=== PATIENT | male | born 1980 | race Two or more races ===

== ENCOUNTER 2024-11-24 22:39 | Inpatient (IN) | payer MEDICAID, OTHER ==
[~2024-11-24] VITALS: Ht 167.6 cm; Wt 71.2 kg
[2024-11-24] MEDS: MAGNESIUM SULFATE 1GM/100ML 100 ML IV SCH
--- NOTE | 2024-11-24 22:47 | ED.PDOC ---
SOB-HPI HPI Comments 44-year-old male with PMHx COPD, Asthma, Sickle Cell Disease brought in by EMS presents with a chief complaint of SOB s/p taking a walk. Patient reported to EMS that he went for a walk and started to become SOB. Per EMS, they were unable to get an initial saturation for patient and noticed he was having an increased work of breathing. EMS placed patient on CPAP. Patient is sating at 100% on CPAP, but is anxious and flailing around. Patient has been intubated before for SOB. No other symptoms or modifying factors present at this time. Chief Complaint: Shortness of Breath Time Seen by MD: 22:40 Reviewed notes: Medications, Allergies Information Source: Emergency Med Personnel Mode of Arrival: EMS Severity: Moderate Timing: Minutes Duration: Since onset Context: With Light Exertion PE Risk Factors: None History of: Asthma, COPD Prehospital treatment: C-Pap Modifying Factors: Exertion Past Medical History PAST MEDICAL HISTORY: Asthma, COPD Past Medical History (Other): SICKLE CELL DISEASE Surgical History: Denies all surgeries Family History Family History: Reviewed,noncontributory to illness Social History Smoker: Non-Smoker Alcohol: Denies ETOH Use Drugs: Denies Drug Use Lives In: Home Constitutional: denies: chills, diaphoresis, fatigue, fever, malaise, sweats, weakness, others EENTM: denies: blurred vision, double vision, ear bleeding, ear discharge, ear drainage, ear pain, ear ringing, eye pain, eye redness, hearing loss, mouth pain, mouth swelling, nasal discharge, nose bleeding, nose congestion, nose pain, photophobia, tearing, throat pain, throat swelling, voice changes, others Respiratory: reports: shortness of breath; denies: cough, hemoptysis, orthopnea, SOB at rest, SOB with excertion, stridor, wheezing, others Cardiovascular: denies: chest pain, dizzy spells, diaphoresis, Dyspnea on exertion, edema, irregular heart beat, left arm pain, lightheadedness, p alpitations, PND, syncope, others Gastrointestinal: denies: abdomen distended, abdominal pain, blood streaked bowels, constipated, diarrhea, dysphagia, difficulty swallowing, hematemesis, melena, nausea, poor appetite, poor fluid intake, rectal bleeding, rectal pain, vomiting, others Genitourinary: denies: burning, dysuria, flank pain, frequency, hematuria, incontinence, penile discharge, penile sore, pain, testicle pain, testicle swelling, urgency, others Neurological: denies: dizziness, fainting, headache, left sided numbness, left sided weakness, numbness, paresthesia, pre-existing deficit, right sided numbness, right sided weakness, seizure, speech problems, tingling, tremors, weakness, others Musculoskeletal: denies: back pain, gout, joint pain, joint swelling, muscle pain, muscle stiffness, neck pain, others Integumetry: denies: bruises, change in color, change in hair/nails, dryness, laceration, lesions, lumps, rash, wounds, others Allergic/Immunocompromised: denies: Difficulty Healing, Frequent Infections, Hives, Itching, others Hematologic/Lymphatic: denies: anemia, blood clots, easy bleeding, easy b ruising, swollen glands, others Endocrine: denies: excessive hunger, excessive sweating, excessive thirst, excessive urination, flushing, intolerance to cold, intolerance to heat, unexplained weight gain, unexplained weight loss, others Psychiatric: denies: anxiety, bipolar disorder, depression, hopeless, panic disorder, schizophrenia, sleepless, suicidal, others All Other Systems: Reviewed and Negative Physical Exam General Appearance: No Apparent Distress, Normal HEENT: Normal ENT Inspection, Pharynx Normal, TMs Normal Neck: Full Range of Motion, Non-Tender, Normal, Normal Inspection Respiratory: Chest Non-Tender, Lungs Clear, No Accessory Muscle Use, No Respiratory Distress, Normal Breath Sounds Cardiovascular: No Edema, No JVD, No Murmur, No Gallop, Normal Peripheral Pulses, Regular Rate/Rhythm Breast Exam: Deferred Gastrointestinal: No Organomegaly, Non Tender, No Pulsatile Mass, Normal Bowel Sounds, Soft Genitalia: Deferred Pelvic: Deferred Rectal: Deferred Extremities: No calf tenderness, Normal capillary refill, Normal inspection, Normal range of motion, Non-tender, No pedal edema Musculoskeletal : Apperance: Normal Neurologic: Alert, sports media II-XII nml as Tested, No Motor Deficits, Normal Affect, Normal Mood, No Sensory Deficits Cerebellar Function: Normal Reflexes: Normal Skin: Dry, Normal Color, Warm Lymphatic: No Adenopathy Was a procedure done? Was a procedure done?: No Differential Dx Differential Diagnosis: Asthma, Bronchitis, CHF, COPD, Myocardial infarction, Pneumonia, Pneumothorax, Pulmonary Embolism, Respiratory Distress, Other X-Ray, Labs, Meds, VS Vital Signs Date Time Temp Pulse Resp B/P (MAP) Pulse Ox O2 Delivery O2 Flow Rate FiO2 11/24/24 23:11 97 18 97 Bi-Pap+ 60 60 11/24/24 23:11 98.4 92 26 122/82 (95) 98 98.4 11/24/24 23:06 93 11/24/24 22:52 88 122/81 Facial BiPAP Mask 60 11/24/24 22:46 122 36 140/101 (114) Lab Test 11/24/24 23:46 11/24/24 22:48 Range/Units Troponin I High Sensitivity Pending < 3 L </=54 ng/L White Blood Count 8.9 4.4-10.8 10^3/uL Red Blood Count 4.51 4.5-5.90 10^6/uL Hemoglobin 14.5 13.5-17.5 g/dL Hematocrit 41.6 41.0-53.0 % Mean Corpuscular Volume 92.3 80.0-100.0 fL Mean Corpuscular Hemoglobin 32.2 H 28.0-32.0 pg Mean Corpuscular Hemoglobin Concent 34.9 32.0-36.0 g/dL Red Cell Distribution Width 14.3 11.8-14.3 % Platelet Count 305 140-450 10^3/uL Mean Platelet Volume 7.2 6.9-10.8 fL Neutrophils (%) (Auto) 58.2 37.0-80.0 % Lymphocytes (%) (Auto) 29.7 10.0-50.0 % Monocytes (%) (Auto) 5.7 0.0-12.0 % Eosinophils (%) (Auto) 5.4 0.0-7.0 % Basophils (%) (Auto) 1.0 0.0-2.0 % Neutrophils # (Auto) 5.2 1.6-8.6 10 ^3/uL Lymphocytes # (Auto) 2.6 0.4-5.4 10 ^3/uL Monocytes # (Auto) 0.5 0-1.3 10 ^3/uL Eosinophils # (Auto) 0.5 0-0.8 10 ^3/uL Basophils # (Auto) 0.1 0-0.2 10 ^3/uL Nucleated Red Blood Cells 0.1 % Prothrombin Time 10.7 9.3-11.8 sec Prothrombin Time INR 1.01 0.9-1.15 Activated Partial Thromboplast Time 26.6 24.5-34.5 SEC Sodium Level 144 136-145 mmol/L Potassium Level 3.5 3.5-5.1 mmol/L Chloride Level 113 H 98-107 mmol/L Carbon Dioxide Level 17 L 20-31 mmol/L Anion Gap 14 5-15 Blood Urea Nitrogen 13 9-23 mg/dL Creatinine 1.21 0.700-1.30 mg/dL Glomerular Filtration Rate Calc 76 >90 mL/min BUN/Creatinine Ratio 10.7 10.0-20.0 Serum Glucose 102 74-106 mg/dL Calcium Level 9.3 8.7-10.4 mg/dL Magnesium Level 1.8 1.6-2.6 mg/dL Total Bilirubin 0.3 0.2-1.0 mg/dL Aspartate Amino Transferase (AST) 18 13-40 U/L Alanine Aminotransferase (ALT) 17 7-40 U/L Alkaline Phosphatase 58 46-116 U/L B-Type Natriuretic Peptide 9.48 0-100 pg/mL Total Protein 6.7 5.7-8.2 g/dL Albumin 4.1 3.2-4.8 g/dL Current Medications Medications (Trade) Dose Ordered Sig/Calvin Route Start Time Stop Time Status Last Admin Sodium Chloride 1,000 ml @ 1,000 mls/hr Q1H ONCE IV 11/24/24 22:45 11/24/24 23:59 DC 11/24/24 23:11 Lorazepam (Ativan Inj) 1 mg ONCE ONCE IV 11/24/24 22:45 11/24/24 22:46 DC 11/24/24 23:10 Magnesium Sulfate/ Dextrose 100 ml @ 100 mls/hr Q1H IV 11/24/24 22:45 11/25/24 00:44 11/24/24 23:02 Methylprednisolone Sodium Succinate (Solu Medrol) 125 mg ONCE ONCE IV 11/24/24 22:45 11/24/24 22:46 DC 11/24/24 23:10 Albuterol (Ventolin Medneb) 5 mg ONCE ONCE NEB 11/24/24 22:45 11/24/24 22:47 DC 11/24/24 23:06 Ipratropium [place] (Atrovent Medneb) 0.5 mg ONCE ONCE NEB 11/24/24 22:45 11/24/24 22:47 DC 11/24/24 23:06 Time of 1ST Reevaluation: 23:10 Reevaluation 1ST: Unchanged Time of 2ND Reevaluation: 00:10 Reevaluation 2ND: Unchanged Patient Education/Counseling: Diagnosis, Treatment, Prognosis Family Education/Counseling: No Family Present Departure 1 Departure Time of Disposition: 00:10 Impression: Primary Impression: Respiratory failure with hypoxia Additional Impressions: Acute asthma exacerbation Sickle cell disease Disposition: ADMITTED INPATIENT Admit to: Tele Condition: Guarded Critical Care Note Critical Care Time?: Yes (45 min-critical care time only) Critical care comment: Total critical care time: Approximately 36 minutes Due to a high probability of clinically significant, life threatening deterioration, the patient required my highest level of preparedness to intervene emergently and I personally spent this critical care time directly and personally managing the patient. This critical care time included obtaining a history; examining the patient; pulse oximetry; ordering and review of studies; arranging urgent treatment with development of a management plan; evaluation of patient's response to treatment; frequent reassessment; and, discussions with other providers. This critical care time was performed to assess and manage the high probability of imminent, life-threatening deterioration that could result in multi-organ failure. It was exclusive of separately billable procedures and treating other patients. Stability Stability form required: No Heart Score Heart Score: Heart Score Response (Comments) Value History Slightly Suspicious 0 EKG Normal 0 Age <45 0 Risk Factors 1 or 2 risk factors 1 Troponin Normal limit 0 Total 1 I personally scribed for SAMI MARTINEZ MD ([email or web address]) on 11/24/24 at 22:46. Electronically submitted by Ruiz Davis ([email or web address]). SAMI MARTINEZ MD Nov 24, 2024 22:46
[2024-11-24 23:00] LABS: Basophils # (auto) 0.1 10 ^3/uL (0-0.2); Eosinophils # (auto) 0.5 10 ^3/uL (0-0.8); Eosinophils % (auto) 5.4 % (0.0-7.0); Hematocrit 41.6 % (41.0-53.0); Hemoglobin 14.5 g/dL (13.5-17.5); Lymphocytes # (auto) 2.6 10 ^3/uL (0.4-5.4); Lymphocytes % (auto) 29.7 % (10.0-50.0); Mean Corpuscular Hemoglobin 32.2 pg (28.0-32.0); Mean Corpuscular Hgb Conc. 34.9 g/dL (32.0-36.0); Mean Corpuscular Volume 92.3 fL (80.0-100.0); Monocytes # (auto) 0.5 10 ^3/uL (0-1.3); Monocytes % (auto) 5.7 % (0.0-12.0); Neutrophils # (auto) 5.2 10 ^3/uL (1.6-8.6); Neutrophils % (auto) 58.2 % (37.0-80.0); Nucleated Red Blood Cells % 0.1 %; Platelet Count (auto) 305 10^3/uL (140-450); Red Blood Cells 4.51 10^6/uL (4.5-5.90); Red Cell Distribution Width 14.3 % (11.8-14.3); White Blood Cell 8.9 10^3/uL (4.4-10.8)
[2024-11-24] MEDS: ALBUTEROL SULF 2.5 MG/0.5ML(0.5%) NEB SOLN NEB ONE (23:06)
[2024-11-24] MEDS: IPRATROPIUM BROM 0.5 MG/2.5ML INH SOL NEB ONE (23:06)
[2024-11-24] MEDS: methylPREDNISolone SOD SUCC 125 MG/2 ML VL IV ONE (23:10)
[2024-11-24] MEDS: LORazepam 2MG/ML-1ML VIAL IV ONE (23:10)
[2024-11-24 23:11] VITALS: PULSE 97; RESP 18; O2SAT 97
[2024-11-24] MEDS: SODIUM CHLORIDE 0.9% 1,000 ML IV ONE (23:11)
[2024-11-24 23:19] LABS: INR 1.01 (0.9-1.15); Partial Thromboplastin Time 26.6 SEC (24.5-34.5); Prothrombin Time 10.7 sec (9.3-11.8)
--- NOTE | 2024-11-24 23:20 | DVH ---
CHEST RADIOGRAPH Indication: SOB Technique: Single frontal view of the chest was obtained Comparison: None FINDINGS: Lines and Tubes: None Lungs: Clear Pleura: No effusion. No pneumothorax. Cardiomediastinal contours: Unremarkable Bones: Unremarkable IMPRESSION: 1. Clear lungs.
[2024-11-24 23:54] LABS: Alanine Aminotransferase 17 U/L (7-40); Alkaline Phosphatase 58 U/L (46-116); Anion Gap 14 (5-15); Aspartate Aminotransferase 18 U/L (13-40); BUN/Creatinine Ratio 10.7 (10.0-20.0); Blood Urea Nitrogen 13 mg/dL (9-23); Calcium 9.3 mg/dL (8.7-10.4); Glucose 102 mg/dL (74-106); Magnesium 1.8 mg/dL (1.6-2.6); Potassium 3.5 mmol/L (3.5-5.1); Sodium 144 mmol/L (136-145)
[2024-11-24 23:55] LABS: Albumin 4.1 g/dL (3.2-4.8); Bilirubin, Total 0.3 mg/dL (0.2-1.0); Total Protein 6.7 g/dL (5.7-8.2)
[2024-11-24 23:58] LABS: Carbon Dioxide 17 mmol/L (20-31); Chloride 113 mmol/L (98-107)
[2024-11-25] VITALS (14 sets, daily range): BP systolic 102–131; BP diastolic 62–82; PULSE 14–96; RESP 16–19; TEMP 98–98.3; O2SAT 95–100
[2024-11-25] MEDS ORDERED: ACETAMINOPHEN 325 MG TAB PO PRN (02:15)
[2024-11-25 02:41] LABS: Urine Bacteria None Seen /hpf (None Seen); Urine Blood Negative /uL (Negative); Urine Clarity Clear (Clear); Urine Color Light-Yellow (Yellow); Urine Protein, UAD Negative (Negative); Urine Specific Gravity 1.011 (1.001-1.035); Urine Squamous Epithelial Cell None Seen /hpf (<5); Urine Urobilinogen Normal (Negative); Urine WBC 1 /hpf (0 - 3); Urine pH 5.5 (5.0-9.0)
--- NOTE | 2024-11-25 02:41 | DVHHPRES ---
History of Present Illness Resident Creating Document: MICHELE LOCO RESIDENT History of Present Illness This is a 44 year old male with past medical history of COPD, asthma, sickle cell disease who presented to the ED due to shortness of breath. Per EMS, the patient developed shortness of breaths after going out for a walk and required CPAP on their way to the ED saturating 100%. Upon my examination, the patient was on CPAP with an IPAP of 14, EPAP of 5 with a FiO2 of 50% saturating 98%. The patient looked agitated and was not able to provide any history at this time . Initial labs were grossly unremarkable with slight elevation of creatinine at 1.21 but no baseline. BNP was 9.4, troponins were negative and liver enzymes were normal range. Initial chest x-ray was grossly unremarkable without evidence of clear consolidation. We started treatment for possible severe asthma exacerbation, magnesium sulfate was given, methylprednisolone IV, albu terol/ipratropium med nebs and continue CPAP. The patient stated that uses albuterol inhaler and advair at home. Patient will be admitted to telemetry for further assessment and management. Pulmonary: Asthma, COPD Heme/Onc: Sickle cell disease Past Surgical History: None Family History: None Smoke: No ALCOHOL: none Drugs: None Lives: with Family Review of Systems Constitutional: No: Fever, Chills, Sweats, Weakness, Malaise, Other Eyes: No: Pain, Vision change, Conjunctivae inflammation, Eyelid inflammation, Other, Redness ENT: No: Ear pain, Ear discharge, Nose pain, Nose discharge, Nose congestion, Mouth pain, Mouth swelling, Throat pain, Throat swelling, Other Respiratory: Shortness of breath, SOB with excertion, Wheezing; No: Cough, Dry, Hemoptysis, Pleuritic Pain, Sputum, Wheezing, Other Cardiovascular: No: Chest Pain, Palpitations, Orthopnea, Paroxysmal Noc. Dyspnea, Edema, Lt Headedness, Other Gastrointestinal: No: Nausea, Vomiting, Abdominal Pain, Diarrhea, Constipation, Melena, Hematochezia, Other Genitourinary: No Dysuria, No Frequency, No Incontinence, No Hematuria, No Retention, No Other Musculoskeletal: No: other, neck pain, shoulder pain, arm pain, back pain, hand pain, leg pain, foot pain Skin: No: Rash, Lesions, Jaundice, Bruising, Other Neurological: No: Weakness, Numbness, Incoordination, Change in speech, Confusion, Seizures, Other Allergies: Coded Allergies: Aspirin (Verified Allergy, Unknown, 11/24/24) Medications Current Medications Medications Dose Ordered Sig/Calvin Route Start Time Stop Time Status Last Admin Dose Admin Acetaminophen 650 mg Q6HP PRN PO 11/25/24 02:15 Methylprednisolone Sodium Succinate 40 mg DAILY IV 11/25/24 10:00 Albuterol 2.5 mg Q4HP PRN NEB 11/25/24 06:00 Ipratropium [place] 0.5 mg Q4HP PRN NEB 11/25/24 06:00 Exam Vital Signs Vital Signs Date Time Temp Pulse Resp B/P (MAP) Pulse Ox O2 Delivery O2 Flow Rate FiO2 11/25/24 00:59 84 112/71 Facial BiPAP Mask 40 11/25/24 00:28 97 11/24/24 23:11 18 11/24/24 23:11 98.4 98.4 General Appearance: Alert, Oriented X3, severe distress (Patient able to understand follow commands but unable to communicate with medical staff due to severe respiratory distress) HEENT: Atraumatic, PERRLA, EOMI, Mucous membr. moist/pink Respiratory: Clear to auscultation, Normal air movement Cardiovascular: Regular rate, Normal S1, Normal S2, No murmurs Abdominal: Normal bowel sounds, Soft, No tenderness, No hepatospenomegaly, No masses Extremities: No clubbing, No cyanosis, No edema, Normal pulses, No ten derness/swelling Skin: No rashes, No breakdown, No significant lesion Neuro: Normal gait, Strength at 5/5 X4 ext, Normal tone, Sensation intact, Cranial nerves 3-12 NL Psych/Mental Status: Mental status NL, Mood NL Labs/Xrays Labs Test 11/25/24 00:44 11/24/24 23:46 11/24/24 22:48 11/24/24 10:57 Range/Units Troponin I High Sensitivity < 3 L </=54 ng/L White Blood Count 8.9 4.4-10.8 10^3/uL Red Blood Count 4.51 4.5-5.90 10^6/uL Hemoglobin 14.5 13.5-17.5 g/dL Hematocrit 41.6 41.0-53.0 % Mean Corpuscular Volume 92.3 80.0-100.0 fL Mean Corpuscular Hemoglobin 32.2 H 28.0-32.0 pg Mean Corpuscular Hemoglobin Concent 34.9 32.0-36.0 g/dL Red Cell Distribution Width 14.3 11.8-14.3 % Platelet Count 305 140-450 10^3/uL Mean Platelet Volume 7.2 6.9-10.8 fL Neutrophils (%) (Auto) 58.2 37.0-80.0 % Lymphocytes (%) (Auto) 29.7 10.0-50.0 % Monocytes (%) (Auto) 5.7 0.0-12.0 % Eosinophils (%) (Auto) 5.4 0.0-7.0 % Basophils (%) (Auto) 1.0 0.0-2.0 % Neutrophils # (Auto) 5.2 1.6-8.6 10 ^3/uL Lymphocytes # (Auto) 2.6 0.4-5.4 10 ^3/uL Monocytes # (Auto) 0.5 0-1.3 10 ^3/uL Eosinophils # (Auto) 0.5 0-0.8 10 ^3/uL Basophils # (Auto) 0.1 0-0.2 10 ^3/uL Nucleated Red Blood Cells 0.1 % Prothrombin Time 10.7 9.3-11.8 sec Prothrombin Time INR 1.01 0.9-1.15 Activated Partial Thromboplast Time 26.6 24.5-34.5 SEC Sodium Level 144 136-145 mmol/L Potassium Level 3.5 3.5-5.1 mmol/L Chloride Level 113 H 98-107 mmol/L Carbon Dioxide Level 17 L 20-31 mmol/L Anion Gap 14 5-15 Blood Urea Nitrogen 13 9-23 mg/dL Creatinine 1.21 0.700-1.30 mg/dL Glomerular Filtration Rate Calc 76 >90 mL/min BUN/Creatinine Ratio 10.7 10.0-20.0 Serum Glucose 102 74-106 mg/dL Calcium Level 9.3 8.7-10.4 mg/dL Magnesium Level 1.8 1.6-2.6 mg/dL Total Bilirubin 0.3 0.2-1.0 mg/dL Aspartate Amino Transferase (AST) 18 13-40 U/L Alanine Aminotransferase (ALT) 17 7-40 U/L Alkaline Phosphatase 58 46-116 U/L B-Type Natriuretic Peptide 9.48 0-100 pg/mL Total Protein 6.7 5.7-8.2 g/dL Albumin 4.1 3.2-4.8 g/dL Blood Gas Specimen Type Venous Blood Gas Sample Site Vbg - n/a Blood Gas Patient Temperature 37.0 Arterial Blood Date Drawn [id number] Bandar Test N/a Venous Blood pH 7.427 7.320-7.430 Venous Blood pCO2 at Patient Temp 30.4 L 38.0-54.0 mmHg Venous Blood pO2 at Patient Temp 146.4 H 23.0-48.0 mmHg Venous Blood HCO3 19.6 L 22.0-29.0 mmol/L Venous Blood Base Excess -3.5 L -2.0-3.0 mmol/L Blood Gas Modality Vbg - n/a FiO2 % 60.0 Blood Gas EPAP 5 Blood Gas IPAP 14 Specimen Drawn By A lawyer vasquez Assessment/Plan Assessment/Plan Assessment/Plan Acute hypoxic respiratory failure likely due to severe asthma exacerbation -chest x-ray came back grossly unremarkable without evidence of clear consolidations -patient was having minimal wheezes on lung auscultation but no crackles -Currently on CPAP with an IPAP of 14, EPAP of 5 with a FiO2 of 50% saturating 98%. -Ordered ABG -magnesium sulfate IV was given -start methylprednisolone 40 mg IV daily -start albuterol 2.5mg med neb Q4 PRN -Start ipratropium 0.5mg Q4 PRN Rule out COPD exacerbation -Start azythromycin IV -start methylprednisolone 40 mg IV daily -start albuterol 2.5mg med neb Q4 PRN -Start ipratropium 0.5mg Q4 PRN Possible Toxic/metabolic encephalopathy -Ordered ammonia -Ordered UDS Goals of care discussed with patient at bedside, FULL CODE Plan discussed with Dr. Kelley Plan discussed with: Patient My Orders Orders - MICHELE LOCO Procedure Category Date Status Time Admit ADMIT 11/25/24 Transmitted 02:08 Code Status CODE 11/25/24 Transmitted 02:08 Vital Signs GARIMA 11/25/24 In Process 02:08 Review Orders With GARIMA 11/25/24 In Process . 02:08 Encourage Activity As GARIMA 11/25/24 In Process Tolerate 02:08 Regular Diet DIET 11/25/24 Transmitted Breakfast Acetaminophen Tablet PHA 11/25/24 In Process (Tylenol Tablet) 02:15 Notify Of Changes GARIMA 11/25/24 In Process From Base 02:08 Advance Directive GARIMA 11/25/24 In Process 02:08 Urinalysis LAB 11/25/24 In Process 02:08 Complete Blood Count LAB 11/25/24 Logged 07:00 Lipid Panel LAB 11/25/24 Logged 02:08 Patient Condition ORDERS 11/25/24 Transmitted 02:08 Allergies GARIMA 11/25/24 In Process 02:08 Drug Screen LAB 11/25/24 In Process 02:08 Hemoglobin A1c LAB 11/25/24 Logged 02:08 Lactic Acid W/ Reflex LAB 11/25/24 Logged Order 02:15 Ammonia LAB 11/25/24 Logged 02:15 Abg W/ Co-Ox RT 11/25/24 Logged 02:15 Methylprednisolone PHA 11/25/24 In Process Sod Succ (Solu Medrol 10:00 Albuterol Medneb PHA 11/25/24 In Process (Ventolin Medneb) 06:00 Ipratropium Medneb PHA 11/25/24 In Process (Atrovent Medneb) 06:00 Comprehensive LAB 11/25/24 Logged Metabolic Panel 07:00 Azithromycin 500mg/ PHA 11/25/24 Transmitted 250ml (Zithromax 50 02:30 Date of Service: Nov 25, 2024 Billing Provider: SABA KELLEY MD Common Visit Codes: [id number] INP/OBS CARE (HIGH) MICHELE LOCO RESIDENT Nov 25, 2024 02:41 SABA KELLEY MD Nov 25, 2024 08:33
[2024-11-25 02:42] LABS: Amphetamine Screen, Urine Neg (NEGATIVE)
[2024-11-25 02:59] LABS: Barbiturate Scree,Urine Neg (NEGATIVE); Benzodiazephine Screen, Urine Neg (NEGATIVE); Cannabinoid Screen, Urine Pos (NEGATIVE); Cocaine Screen, Urine Neg (NEGATIVE); Opiate Scree,Urine Neg (NEGATIVE); Phencyclidine Screen, Urine Neg (NEGATIVE)
[2024-11-25] MEDS: AZITHROMYCIN 500MG/ 250ML 250 ML IV ONE (03:10)
[2024-11-25 03:11] LABS: Basophils # (auto) 0 10 ^3/uL (0-0.2); Basophils % (auto) 0.5 % (0.0-2.0); Eosinophils # (auto) 0 10 ^3/uL (0-0.8); Eosinophils % (auto) 0.5 % (0.0-7.0); Hematocrit 42.1 % (41.0-53.0); Hemoglobin 14.3 g/dL (13.5-17.5); Lymphocytes # (auto) 0.6 10 ^3/uL (0.4-5.4); Lymphocytes % (auto) 7.4 % (10.0-50.0); Mean Corpuscular Hemoglobin 31.7 pg (28.0-32.0); Mean Corpuscular Volume 93.3 fL (80.0-100.0); Monocytes # (auto) 0.1 10 ^3/uL (0-1.3); Monocytes % (auto) 1.1 % (0.0-12.0); Neutrophils # (auto) 6.9 10 ^3/uL (1.6-8.6); Neutrophils % (auto) 90.5 % (37.0-80.0); Nucleated Red Blood Cells % 0.1 %; Platelet Count (auto) 283 10^3/uL (140-450); Red Blood Cells 4.52 10^6/uL (4.5-5.90); Red Cell Distribution Width 14.2 % (11.8-14.3); White Blood Cell 7.6 10^3/uL (4.4-10.8)
[2024-11-25 03:15] LABS: Alanine Aminotransferase 17 U/L (7-40); Albumin 4.2 g/dL (3.2-4.8); Alkaline Phosphatase 59 U/L (46-116); Anion Gap 10 (5-15); BUN/Creatinine Ratio 11.7 (10.0-20.0); Blood Urea Nitrogen 14 mg/dL (9-23); Calcium 9.7 mg/dL (8.7-10.4); Carbon Dioxide 21 mmol/L (20-31); Potassium 4.2 mmol/L (3.5-5.1); Sodium 142 mmol/L (136-145)
[2024-11-25] MEDS: ALBUTEROL SULF 2.5 MG/0.5ML(0.5%) NEB SOLN NEB PRN (03:26)
[2024-11-25] MEDS: IPRATROPIUM BROM 0.5 MG/2.5ML INH SOL NEB PRN (03:26)
[2024-11-25 03:42] LABS: Aspartate Aminotransferase 13 U/L (13-40); Bilirubin, Total 0.3 mg/dL (0.2-1.0); Chloride 111 mmol/L (98-107); Glucose 117 mg/dL (74-106)
[2024-11-25 03:45] LABS: Lactic Acid w/Reflex 2.3 mmol/L (0.4-2.0)
[2024-11-25 03:58] LABS: LDL Cholesterol 97 mg/dL (< 100)
[2024-11-25 03:59] LABS: Cholesterol 170 mg/dL (< 200); HDL Cholesterol 46 mg/dL (40-59)
[2024-11-25 04:07] LABS: Triglycerides 188 mg/dL (< 150)
[2024-11-25 04:20] LABS: COVID19 ANTIGEN SOFIA FIA NEGATIVE (NEGATIVE); Rapid Influenza A Negative (Negative); Rapid Influenza B Negative (Negative)
[2024-11-25] MEDS: MORPHINE SULFATE INJ 2 MG/ml SYRG IV PRN (04:41)
[2024-11-25] MEDS: ONDANSETRON HCL 4 MG/2 ML VIAL IV PRN (04:42)
[2024-11-25] MEDS ORDERED: ALBUTEROL SULF 2.5 MG/0.5ML(0.5%) NEB SOLN NEB PRN (06:00)
[2024-11-25] MEDS ORDERED: IPRATROPIUM BROM 0.5 MG/2.5ML INH SOL NEB PRN (06:00)
[2024-11-25] MEDS: methylPREDNISolone SOD SUCC 40 MG/ML VL IV SCH ×2 (09:36→20:47)
[2024-11-25] MEDS ORDERED: ALBU2TAB11 PO (12:19)
[2024-11-25] MEDS ORDERED: HYDR-4798 PO (12:19)
[2024-11-25] MEDS ORDERED: FLUT250M2 INH (12:19)
[2024-11-25] MEDS ORDERED: ATEN-60 PO (12:19)
--- NOTE | 2024-11-25 17:02 | DVHPNRES ---
Progress Note Date Seen: Nov 25, 2024 Resident Creating Document: BUBBA AG RESIDENT Medical Necessity Reason Pt with a Central, PICC or Fol: No Subjective Review of Systems This is a 44 year old male with past medical history of COPD, asthma, sickle cell disease who presented to the ED due to shortness of breath. Per EMS, the patient developed shortness of breath after going out for a walk and required CPAP on their way to the ED saturating 100%. The patient was agitated and was not able to provide any history at that time. Initial labs were grossly unremarkable . Initial chest x-ray was grossly unremarkable without evidence of clear consolidation. We started treatment for possible severe asthma exacerbation, magnesium sulfate was given, methylprednisolone IV, albuterol/ipratropium med neb , patient responded well. The patient stated that he is allergic to animals and he live with his partner's dog. He reports he have daily asthma episodes and he wake up at night with shortness of breath everyday. He was admitted one month ago to [facility] were he was intubated for one day because of respiratory failure. Patient was examined at bedside, he reports still having mild shortness of breath and is currently on 2L NC, steroids are given twice a day and he will need to continue on medneb. Review of systems: Constitutional: No: Fever, Chills, Sweats, Weakness, Malaise, Other Eyes: No: Pain, Vision change, Conjunctivae inflammation, Eyelid inflammation, Other, Redness ENT: No: Ear pain, Ear discharge, Nose pain, Nose discharge, Nose congestion, Mouth pain, Mouth swelling, Throat pain, Throat swelling, Other Respiratory: Shortness of breath, improving No Wheezing, Hemoptysis, Pleuritic Pain, Sputum, Wheezing, Other Cardiovascular: Yes: Chest tightness No: Chest Pain, Palpitations, Orthopnea, Paroxysmal Noc. Dyspnea, Edema, Lt Headedness, Other Gastrointestinal: No: Nausea, Vomiting, Abdominal Pain, Diarrhea, Constipation, Melena, Hematochezia, Other Musculoskeletal: No: other, neck pain, shoulder pain, arm pain, back pain, hand pain, leg pain, foot pain Neurological:; No: Weakness, Numbness, Incoordination, Change in speech, Confusion, Seizures Patient reports: Feels better Changes from previous H/P or p: Changes Objective vital signs Vital Sign Date Time Temp Pulse Resp B/P (MAP) Pulse Ox O2 Delivery O2 Flow Rate FiO2 11/25/24 13:00 98.3 81 18 131/80 (97) 97 98.3 11/25/24 10:06 Nasal Cannula* 2 28 Total Intake and Output 11/24/24 11/24/24 11/25/24 15:00 23:00 07:00 Intake Total 1450 ml Balance 1450 ml medications Current Medications Medications Dose Ordered Sig/Calvin Route Start Time Stop Time Status Last Admin Dose Admin Acetaminophen 650 mg Q6HP PRN PO 11/25/24 02:15 Albuterol 2.5 mg Q4HP PRN NEB 11/25/24 03:15 11/25/24 07:10 2.5 MG Ipratropium [place] 0.5 mg Q4HP PRN NEB 11/25/24 03:15 11/25/24 07:10 0.5 MG Morphine Sulfate 1 mg Q4HP PRN IV 11/25/24 04:00 11/25/24 04:41 1 MG Ondansetron HCl 4 mg Q4HPRN PRN IV 11/25/24 04:15 11/25/24 04:42 4 MG Methylprednisolone Sodium Succinate 40 mg BID IV 11/25/24 22:00 Examination Examination General Appearance: Alert, Oriented X3, Cooperative, No acute distress HEENT: EOMI Respiratory: Clear to auscultation, Normal air movement on 2 L nasal cannula Cardiovascular: Regular rate, Normal S1, Normal S2 Abdominal: Normal bowel sounds Extremities: No cyanosis, No edema, Normal pulses, No tenderness/swelling Skin: No rashes, No breakdown Neuro: Normal gait, Normal speech, Strength at 5/5 X4 ext, Normal tone, Sensation intact, Cranial nerves 3-12 NL, Reflexes 2+ Psych/Mental Status: Mental status NL, Mood NL laboratory and microbiology Laboratory Tests 11/25/24 02:46 Test 11/25/24 02:46 Range/Units Serum Glucose 117 H 74-106 mg/dL Problem List/Assessment/Plan Problem List/Assessment/Plan #Acute hypoxic respiratory failure likely due to severe asthma exacerbation -chest x-ray came back grossly unremarkable without evidence of clear consolidations -Continue methylprednisolone 40 mg IV BID -Continue albuterol 2.5mg med neb Q4 PRN -Continue ipratropium 0.5mg Q4 PRN #Hypertriglyceridemia - lifestyle modification counseling and dietary habits counseling #Drug abuse, marijuana use - smoking cessation counseling #Sickle cell disease history - Follow up in the outpatient clinic Case discussed with Dr. Combs Goals of care discussed with patient for 24 minutes. Code status: Full code Plan discussed with: Patient My Orders My Orders Orders - BUBBA AG Procedure Category Date Status Time Methylprednisolone PHA 11/25/24 In Process Sod Succ (Solu Medrol 22:00 Date of Service: Nov 25, 2024 Billing Provider: GISSELL COMBS MD Common Visit Codes: [id number] INP/OBS CARE(HIGH) BUBBA AG Nov 25, 2024 17:02 GISSELL COMBS MD Nov 25, 2024 19:25
[2024-11-25] MEDS: MELATONIN 5 MG TAB PO ONE (21:46)
[2024-11-26] VITALS (12 sets, daily range): BP systolic 105–135; BP diastolic 62–82; PULSE 63–87; RESP 15–18; TEMP 97.5–98.3; O2SAT 97–100
[2024-11-26 08:07] LABS: Basophils # (auto) 0 10 ^3/uL (0-0.2); Basophils % (auto) 0.2 % (0.0-2.0); Eosinophils # (auto) 0 10 ^3/uL (0-0.8); Hematocrit 43.8 % (41.0-53.0); Hemoglobin 14.7 g/dL (13.5-17.5); Lymphocytes # (auto) 0.9 10 ^3/uL (0.4-5.4); Lymphocytes % (auto) 5.3 % (10.0-50.0); Mean Corpuscular Hemoglobin 31.1 pg (28.0-32.0); Mean Corpuscular Hgb Conc. 33.6 g/dL (32.0-36.0); Mean Corpuscular Volume 92.7 fL (80.0-100.0); Monocytes # (auto) 0.9 10 ^3/uL (0-1.3); Monocytes % (auto) 5.5 % (0.0-12.0); Neutrophils # (auto) 15.2 10 ^3/uL (1.6-8.6); Platelet Count (auto) 291 10^3/uL (140-450); Red Blood Cells 4.72 10^6/uL (4.5-5.90); Red Cell Distribution Width 14.2 % (11.8-14.3); White Blood Cell 17.1 10^3/uL (4.4-10.8)
[2024-11-26 08:16] LABS: Potassium 4.3 mmol/L (3.5-5.1); Sodium 138 mmol/L (136-145)
[2024-11-26 08:17] LABS: Anion Gap 9 (5-15); Carbon Dioxide 22 mmol/L (20-31)
[2024-11-26 08:20] LABS: Chloride 107 mmol/L (98-107)
[2024-11-26 08:23] LABS: BUN/Creatinine Ratio 11.8 (10.0-20.0); Blood Urea Nitrogen 13 mg/dL (9-23)
[2024-11-26 08:24] LABS: Glucose 114 mg/dL (74-106)
[2024-11-26] MEDS ORDERED: MONT10TA23 PO (17:41)
[2024-11-26] MEDS ORDERED: PRED20TA2 PO (17:42)
--- NOTE | 2024-11-26 19:15 | DVHPN2 ---
Subjective BETTER Reviewed: Care Plan, H&P, Labs, Medications, Previous Orders, Radiology Changes from previous H/P or p: No Changes Objective Vitals Vital Signs Date Time Temp Pulse Resp B/P (MAP) Pulse Ox O2 Delivery O2 Flow Rate FiO2 11/26/24 17:00 97.5 64 18 135/82 (99) 97 97.5 11/26/24 16:28 Nasal Cannula* 2 28 Intake/Output Intake and Output 11/26/24 07:00 Intake Total 1050 ml Output Total 400 ml Balance 650 ml Intake Oral 1050 ml Output Urine Total 400 ml # Voids 5 General Appearance: Alert, Oriented X3, Cooperative, No acute distress HEENT: Atraumatic Lungs: Other (DECREASED AIR ENTRY IN BIBASILAR AREAS) Medications Current Medications Medications Dose Ordered Sig/Calvin Route Start Time Stop Time Status Last Admin Dose Admin Acetaminophen 650 mg Q6HP PRN PO 11/25/24 02:15 Albuterol 2.5 mg Q4HP PRN NEB 11/25/24 03:15 11/26/24 16:27 2.5 MG Ipratropium [place] 0.5 mg Q4HP PRN NEB 11/25/24 03:15 11/26/24 16:27 0.5 MG Morphine Sulfate 1 mg Q4HP PRN IV 11/25/24 04:00 11/26/24 16:14 1 MG Ondansetron HCl 4 mg Q4HPRN PRN IV 11/25/24 04:15 11/25/24 04:42 4 MG Methylprednisolone Sodium Succinate 40 mg BID IV 11/25/24 22:00 11/26/24 09:29 40 MG Laboratory Results Laboratory Tests 11/26/24 07:22 Chemistry Test 11/26/24 07:22 Calcium Level 10.0 mg/dL (8.7-10.4) Urinalysis Test 11/25/24 04:04 Urine Color Light-yellow (Yellow) Urine Clarity Clear (Clear) Urine pH 5.5 (5.0-9.0) Urine Specific [place] 1.011 (1.001-1.035) Urine Protein Negative (Negative) Urine Ketones Negative (Negative) Urine Blood Negative /uL (Negative) Urine Nitrite Negative (Negative) Urine Bilirubin Negative (Negative) Urine Urobilinogen Normal mg/dL (Negative) Urine Leukocyte Esterase Negative /uL (Negative) Urine RBC <1 /hpf (0 - 3) Urine WBC 1 /hpf (0 - 3) Urine Squamous Epithelial Cells None seen /hpf (<5) Urine Bacteria None seen /hpf (None Seen) Urine Glucose Normal mg/dL (Normal) Microbiology Microbiology Date/Time Source Procedure Growth Status 11/25/24 21:06 Nose MRSA Screen - Final Complete Assessment/Plan Assessment/Plan A. RESP FAILURE COPD EXACERBATION ASTHMA PLAN POSSIBLE HOME TOMORROW Plan discussed with: Patient Date of Service: Nov 26, 2024 Billing Provider: GISSELL COMBS MD Common Visit Codes: [id number] INP/OBS CARE(MOD) GISSELL COMBS MD Nov 26, 2024 19:15
[2024-11-27 01:00] VITALS: BP 145/71; PULSE 78; RESP 18; TEMP 98.2; O2SAT 97
[2024-11-27 05:00] VITALS: BP 113/78; PULSE 73; RESP 18; TEMP 97.9; O2SAT 98
[2024-11-27 05:30] VITALS: BP 100/55; PULSE 67; TEMP 97.9; O2SAT 97
[2024-11-27 08:00] VITALS: PULSE 65; RESP 16
[2024-11-27 09:14] VITALS: BP 128/93; PULSE 65; RESP 17; TEMP 98.6; O2SAT 97
[2024-11-27] MEDS ORDERED: DOXY1CAP57 PO (11:16)
--- NOTE | 2024-11-27 22:16 | DVHDSRES ---
Discharge Summary Date of Admission Resident Creating Document: BUBBA AG RESIDENT Nov 25, 2024 at 02:08 Date of Discharge: Nov 26, 2024 Admitting Diagnosis acute hypoxic respiratory failure due to asthma exacerbation Labs/Diagnostic Data: Laboratory Results Test 11/26/24 07:22 11/25/24 05:00 11/25/24 04:04 11/25/24 03:30 White Blood Count 17.1 10^3/uL (4.4-10.8) Red Blood Count 4.72 10^6/uL (4.5-5.90) Hemoglobin 14.7 g/dL (13.5-17.5) Hematocrit 43.8 % (41.0-53.0) Mean Corpuscular Volume 92.7 fL (80.0-100.0) Mean Corpuscular Hemoglobin 31.1 pg (28.0-32.0) Mean Corpuscular Hemoglobin Concent 33.6 g/dL (32.0-36.0) Red Cell Distribution Width 14.2 % (11.8-14.3) Platelet Count 291 10^3/uL (140-450) Mean Platelet Volume 7.8 fL (6.9-10.8) Neutrophils (%) (Auto) 89.0 % (37.0-80.0) Lymphocytes (%) (Auto) 5.3 % (10.0-50.0) Monocytes (%) (Auto) 5.5 % (0.0-12.0) Eosinophils (%) (Auto) 0.0 % (0.0-7.0) Basophils (%) (Auto) 0.2 % (0.0-2.0) Neutrophils # (Auto) 15.2 10 ^3/uL (1.6-8.6) Lymphocytes # (Auto) 0.9 10 ^3/uL (0.4-5.4) Monocytes # (Auto) 0.9 10 ^3/uL (0-1.3) Eosinophils # (Auto) 0 10 ^3/uL (0-0.8) Basophils # (Auto) 0 10 ^3/uL (0-0.2) Nucleated Red Blood Cells 0.0 % Sodium Level 138 mmol/L (136-145) Potassium Level 4.3 mmol/L (3.5-5.1) Chloride Level 107 mmol/L (98-107) Carbon Dioxide Level 22 mmol/L (20-31) Anion Gap 9 (5-15) Blood Urea Nitrogen 13 mg/dL (9-23) Creatinine 1.10 mg/dL (0.700-1.30) Glomerular Filtration Rate Calc 85 mL/min (>90) BUN/Creatinine Ratio 11.8 (10.0-20.0) Serum Glucose 114 mg/dL (74-106) Calcium Level 10.0 mg/dL (8.7-10.4) Lactic Acid Level 1.8 mmol/L (0.4-2.0) Urine Color Light-yellow (Yellow) Urine Clarity Clear (Clear) Urine pH 5.5 (5.0-9.0) Urine Specific [place] 1.011 (1.001-1.035) Urine Protein Negative (Negative) Urine Ketones Negative (Negative) Urine Blood Negative /uL (Negative) Urine Nitrite Negative (Negative) Urine Bilirubin Negative (Negative) Urine Urobilinogen Normal mg/dL (Negative) Urine Leukocyte Esterase Negative /uL (Negative) Urine RBC <1 /hpf (0 - 3) Urine WBC 1 /hpf (0 - 3) Urine Squamous Epithelial Cells None seen /hpf (<5) Urine Bacteria None seen /hpf (None Seen) Urine Glucose Normal mg/dL (Normal) Influenza Type A Antigen Negative (Negative) Influenza Type B Antigen Negative (Negative) SARS-CoV-2 Antigen (Rapid) Negative (NEGATIVE) Test 11/25/24 02:46 11/25/24 00:44 11/24/24 23:46 11/24/24 22:48 Hemoglobin A1c 5.4 % A1C (<5.7) Total Bilirubin 0.3 mg/dL (0.2-1.0) Aspartate Amino Transferase (AST) 13 U/L (13-40) Alanine Aminotransferase (ALT) 17 U/L (7-40) Alkaline Phosphatase 59 U/L (46-116) Ammonia < 10 umol/L (11-32) Total Protein 7.0 g/dL (5.7-8.2) Albumin 4.2 g/dL (3.2-4.8) Triglycerides Level 188 mg/dL (< 150) Cholesterol Level 170 mg/dL (< 200) LDL Cholesterol 97 mg/dL (< 100) HDL Cholesterol 46 mg/dL (40-59) Urine Opiates Screen Neg (NEGATIVE) Urine Fentanyl Screen Neg (NEGATIVE) Urine Barbiturates Screen Neg (NEGATIVE) Urine Phencyclidine Screen Neg (NEGATIVE) Urine Amphetamines Screen Neg (NEGATIVE) Urine Benzodiazepines Screen Neg (NEGATIVE) Urine Cocaine Screen Neg (NEGATIVE) Urine Cannabinoids Screen Pos (NEGATIVE) Troponin I High Sensitivity < 3 ng/L (</=54) Prothrombin Time 10.7 sec (9.3-11.8) Prothrombin Time INR 1.01 (0.9-1.15) Activated Partial Thromboplast Time 26.6 SEC (24.5-34.5) Magnesium Level 1.8 mg/dL (1.6-2.6) B-Type Natriuretic Peptide 9.48 pg/mL (0-100) Test 11/24/24 10:57 Blood Gas Specimen Type Venous Blood Gas Sample Site Vbg - n/a Blood Gas Patient Temperature 37.0 Arterial Blood Date Drawn [id number] Bandar Test N/a Venous Blood pH 7.427 (7.320-7.430) Venous Blood pCO2 at Patient Temp 30.4 mmHg (38.0-54.0) Venous Blood pO2 at Patient Temp 146.4 mmHg (23.0-48.0) Venous Blood HCO3 19.6 mmol/L (22.0-29.0) Venous Blood Base Excess -3.5 mmol/L (-2.0-3.0) Blood Gas Modality Vbg - n/a FiO2 % 60.0 Blood Gas EPAP 5 Blood Gas IPAP 14 Specimen Drawn By A socially responsible investment adviser rn Other Laboratory Tests 11/26/24 07:22 Brief Hx & Hospital Course: HPI: 44 year old male with past medical history of COPD, asthma, sickle cell disease who presented to the ED due to shortness of breath. Per EMS, the patient developed shortness of breath after going out for a walk and required CPAP on their way to the ED saturating 100%. The patient was agitated and was not able to provide any history at that time. Hospital course: Initial labs were grossly unremarkable . Initial chest x-ray was grossly unremarkable without evidence of clear consolidation. We started treatment for possible severe asthma exacerbation, magnesium sulfate was given, methylprednisolone IV, albuterol/ipratropium med neb , patient responded well. The patient stated that he is allergic to animals and he live with his partner's dog. He reports he have daily asthma episodes and he wake up at night with shortness of breath everyday. He was admitted one month ago to [facility] were he was intubated for one day because of respiratory failure. steroids were given twice a day and ,medneb. patient continue recovering and was discharged safely with oral antibiotics, steroids for 5 days and inhalers. Disposition: Patient stable for discharge to home Follow up within 2 weeks with PCP and pulmonology Case discussed with Goals of care discussed with patient for 27 minutes. Operations or Procedures [place] [id number] Ph: [phone] DIAGNOSTIC IMAGING Diagnostic Imaging Report : [id number] Signed PATIENT: ISSA HOLMAN ACCT: [id number] UNIT: [id number] : 1980 LOC: ER ROOM / BED: / AGE / SEX: 44 / M ADM STATUS: REG ER SERVICE 46 ORDERING PHYSICIAN: SAMI MARTINEZ MD PROCEDURE(s): CXRP - CHEST PORTABLE REASON: SOB ORDER NUMBER(s): [id number], ACCESSION NUMBER(s): [id number] CHEST RADIOGRAPH Indication: SOB Technique: Single frontal view of the chest was obtained Comparison: None FINDINGS: Lines and Tubes: None Lungs: Clear Pleura: No effusion. No pneumothorax. Cardiomediastinal contours: Unremarkable Bones: Unremarkable IMPRESSION: 1. Clear lungs. ATED BY: LARRY HENRY DO DICTATED DATE/TIME: 11/24/242316 SIGNED BY: LARRY HENRY DO SIGNED DATE/TIME: 11/24/242316 CC: Condition at Discharge: Fair Final Diagnosis/Problems List #Acute hypoxic respiratory failure likely due to severe asthma exacerbation #Hypertriglyceridemia #Drug abuse, marijuana use #Sickle cell disease history Discharge Disposition: Home SNF Discharge Will this Physician continue t: No Discharge Instruct/Medications Diet: Cardiac 2g Na,low cholest Activity: No Restrictions, As Tolerated Follow Up/Referral: follow up with pneumology follow up with pcp within 1 to 2 weeks Medications: script to pharmacy Discharge Statement: "Patient was advised to return to the ER or call 911 if any headaches, dizziness, shortness of breath, chest pain, abdominal pain, bleeding, fevers, or worsening of medical condition. Patient was counseled about treatment plan, medications, possible side effects, patientverbalized understanding. All questions were answered to the best of my ability. This discharge took greater then 30 minutes in planning, reviewing documentation, counseling the patient, and discussing with other team members." ASSESSMENT ASSESSMENT Assessment Acute hypoxic respiratory failure due to severe asthma exacerbation Date of Service: Nov 26, 2024 Billing Provider: GISSELL COMBS MD Common Visit Codes: [id number] DISCH DAY <30MIN BUBBA AG RESIDENT Nov 27, 2024 22:16 GISSELL COMBS MD Dec 04, 2024 16:14
--- NOTE | 2024-12-02 09:13 | ECG ---
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
== END 2024-11-27 09:43 | disposition home or self-care (01) | DRG 133 ==
LOC: EDBD 22:39 → ER 22:39 → TELE 11-25 02:08 → TELE-WESTW 11-25 09:46
PROVIDERS: ADMIT Internal Medicine; ATTEND Internal Medicine
PROC: 5A09357 Assistance with Respiratory Ventilation, Less than 24 Consecutive Hours, Continuous Positive Airway Pressure (ICD-10-PCS; principal; 2024-11-25)
DX: J96.01 Acute respiratory failure with hypoxia (principal); D57.1 Sickle-cell disease without crisis; J45.901 Unspecified asthma with (acute) exacerbation; E78.1 Pure hyperglyceridemia; F12.10 Cannabis abuse, uncomplicated; Z20.822 Contact with and (suspected) exposure to COVID-19
CPT/HCPCS: 36415; 36600; 71045; 80048; 80053; 80061; 80307; 81001; 82140; 82805; 83036; 83605; 83735; 83880; 84484; 85025; 85610; 85730; 87081; 87426; 87804; 93005; 94640; 94660; 99291; G0378; J2405